=== PATIENT | female | born 1955 | race Caucasian/White ===

== ENCOUNTER 2020-05-23 06:54 | Outpatient (NON) | payer MEDICARE, SELFPAY ==
[2020-05-23 14:30] LABS: Influenza Control Positive
[2020-05-24 20:05] LABS: SARS-CoV-2 RNA PCR Negative
== END 2020-05-23 06:55 ==
PROVIDERS: PCP Family Medicine; Visit Provider Family Medicine
DX: Z20.828 Contact with and (suspected) exposure to other viral communicable diseases (principal); R05 Cough
CPT/HCPCS: 87635; 87804; C9803; U0003

== ENCOUNTER 2021-02-11 01:13 | Day surgery (SDC) | payer MEDICARE, SELFPAY ==
[2021-02-11] MEDS: ACETAMINOPHEN 500 MG TABLET 1000 MG PO (07:52)
[2021-02-11] MEDS: KETOROLAC 15 MG/ML VIAL (*BKC) IV PUSH (08:07)
[2021-02-11] MEDS: LACTATED RINGERS 1,000 ML 30 ML IV CONT (08:07)
[2021-02-11 08:08] VITALS: BP 147/90; PULSE 56; TEMP 36.7; O2SAT 99; BMI 27.6
--- NOTE | 2021-02-11 08:19 | WPDANESEPPF ---
Anes - Initial Pre Proc Eval Procedure: Operation Date: 02/11/21 09:30 Proposed Procedures p Right Carpal Tunnel Release - Howie Ramos MD Date/Time: 02/11/21 08:19 Surgeon: Howie Ramos MD Pre Op Diagnosis: right carpal tunnel syndrome Patient Data Age: 65 Gender: F Height: 1.63 m Weight: 73 kg Last Vital Signs Temp 36.7 C 02/11/21 08:08 Pulse 56 L 02/11/21 08:08 BP 147/90 H 02/11/21 08:08 Pulse Ox 99 02/11/21 08:08 Allergies Allergy/AdvReac Type Severity Reaction Status Date / Time No Known Allergies Allergy Mild Verified 02/11/21 07:40 Home Medications Medication Instructions Recorded Confirmed Type calcium carbonate-vitamin D3 600 1 cap PO DAILY 05/24/19 02/11/21 History mg calcium-200 unit capsule fexofenadine 180 mg tablet 180 mg PO DAILY 05/24/19 02/11/21 History cyclobenzaprine 10 mg tablet 10 mg PO QHS PRN #30 tablet 12/27/20 02/11/21 Rx aspirin [Adult Low Dose Aspirin] 81 mg PO DAILY 02/01/21 02/11/21 History atenolol 25 mg PO QAM 02/01/21 02/11/21 History levothyroxine 50 mcg PO QAM 02/01/21 02/11/21 History lisinopril 10 mg PO QAM 02/01/21 02/11/21 History omeprazole 20 mg PO DAILY PRN 02/01/21 02/11/21 History pravastatin 20 mg PO HS 02/01/21 02/11/21 History Patient hx anesthesia problems: none Family hx anesthesia problems: none PMFSH Past Medical History Medical History Allergies Arthritis of carpometacarpal (CMC) joint of right thumb Chronic GERD Deficient knowledge of caesarean delivery Essential (primary) hypertension Pure hypercholesterolemia Right carpal tunnel syndrome Thyroid disorder Surgical History Surgical History H/O breast biopsy H/O: hysterectomy History of meniscectomy of right knee Hx of arthroscopic knee surgery Family History Family History Father Hypertension Malignant neoplasm of prostate Family history of diabetes mellitus in first degree relative Family history of elevated blood lipids Family history of heart disease in male family member before age 55 Diabetes mellitus Grandparent Family history of malignant neoplasm of breast Family history of chronic obstructive pulmonary disease Malignant neoplasm of prostate Family history of malignant neoplasm of breast in first degree relative Mother Hypertension Family history of elevated blood lipids Family history of anemia Cerebrovascular accident Sibling Hypertension Family history of elevated blood lipids Other Carcinoma of colon Family history of allergic disorder Family history of cardiovascular disease Social History Social History Smoking packs per day: 1 Smoking cigarettes per day: 20.0 Years smoked: 47 Smoking pack-years: 47.00 Smoking status: Current every day smoker Tobacco type: cigarettes Second hand tobacco smoke exposure: Yes Alcohol intake: current Drinks per week: 21 Alcohol use details: wine Substance use: never Substance use type: does not use Living arrangements: with family Additional living arrangements comments: HUSB AND CHILD Gender identity (if verbalized by the patient): Female Spiritual care concerns: No Agree to blood products: Yes Anes - Eval Final PreProcedure Day of Procedure 02/11/21 08:19 Patient weight: overweight Heart: regular rate and rhythm Lungs: decreased breath sounds Airway: Mallampati scale class II Neurological: alert and oriented Last oral intake: >/= 8 hours ASA classification: III Emergent: no Anesthetic plan: proceed Anesthesia type and monitoring: general GIVS and standard monitoring Informed Consent: The patient's anesthetic plan and its attendant risks and benefits were discussed with the patient/family/POA. Questions were khalif
--- NOTE | 2021-02-11 09:13 | WPDHPUPDATE1 ---
History and Physical Update Update Date/Time: 02/11/21 09:13 History and Physical has been reviewed, including an updated exam of the patient. There are NO changes in the patient's condition. Risks, benefits, and alternatives have been discussed and questions answered. Patient agrees to proceed with procedure.
[2021-02-11] MEDS: ceFAZolin 2 GM/D5W 50 ML 2 GM/50 ML BAG IVPB (09:18)
[2021-02-11 09:55] VITALS: BP 109/69; PULSE 59; RESP 12; O2SAT 93
--- NOTE | 2021-02-11 10:02 | W.PM.PROC2 ---
Procedure Note - Detailed Date of Procedure 02/11/21 Pre-op Diagnosis right carpal tunnel syndrome Post-op Diagnosis same Procedure Performed Open right carpal tunnel release Surgeon Howie Ramos MD Correspondence Representative Miladis Magallanes Anesthesia MAC and local Indications See H&P Description of Procedure The patient was identified and proper side identified. After being taken to the operating room and transferred to the OR table, a nonsterile tourniquet was placed high on the right upper extremity, which was prepped and draped in the usual sterile fashion. After IV sedation was administered, the subcutaneous tissue in the area of the incision was infiltrated with several cc of 0.25% Marcaine and epinephrine solution. The extremity was exsanguinated and tourniquet inflated to 200 mmHg remaining up for approximately five minutes. A longitudinal incision was over the ulnar aspect of the transverse carpal ligament. Subcutaneous tissue was bluntly dissected down to the ligament, which was identified and then transected longitudinally in line with the incision releasing the contents of the carpal canal. The tourniquet was released. Hemostasis was carried out with bipolar electrocautery. The median nerve had appropriate blush with reperfusion. The wound was irrigated with sterile saline solution. Skin edges were reapproximated with four 0 nylon suture and a sterile dressing was applied. A well-padded volar wrist splint was fashioned with the wrist in a neutral position. Estimated Blood Loss 1 Tourniquet Time 5 Drains No Packing No Pathology none sent Complications No immediate complications Condition stable Disposition PACU
[2021-02-11 10:25] VITALS: BP 164/94; PULSE 56; RESP 20
[2021-02-11 10:55] VITALS: BP 168/90; PULSE 54; RESP 20
== END 2021-02-11 11:06 | disposition home or self-care (01) ==
PROVIDERS: PCP Family Medicine; Visit Provider Orthopaedic Surgery
PROC: (CPT 64721; principal; 2021-02-11 09:30)
DX: G56.01 Carpal tunnel syndrome, right upper limb (principal); I10 Essential (primary) hypertension; E07.9 Disorder of thyroid, unspecified; M18.11 Unilateral primary osteoarthritis of first carpometacarpal joint, right hand; F17.210 Nicotine dependence, cigarettes, uncomplicated; Z79.82 Long term (current) use of aspirin; E03.9 Hypothyroidism, unspecified; K21.9 Gastro-esophageal reflux disease without esophagitis; E78.00 Pure hypercholesterolemia, unspecified
CPT/HCPCS: 64721; A9270; J0690; J1885; J2250; J2704; J3010; J7120

== ENCOUNTER → 2021-04-18 01:45 | Outpatient (CLI) | payer MEDICARE, SELFPAY ==
[2021-04-18 11:28] LABS: Influenza Control Positive
[2021-04-18 22:24] LABS: SARS-CoV-2 RNA PCR Negative
== END ==
PROVIDERS: PCP Family Medicine; Visit Provider Family Medicine
DX: R05.9 Cough, unspecified (principal); Z20.822 Contact with and (suspected) exposure to COVID-19
CPT/HCPCS: 87804; C9803; U0003; U0005

== ENCOUNTER → 2021-10-22 11:50 | Outpatient (CLI) | payer MEDICARE, SELFPAY ==
--- NOTE | ~2021-10-22 | MR_ITS ---
EXAMINATION: MR cervical spine wo con DATE: 10/22/2021 12:28 INDICATION: Neck pain. TECHNIQUE: Magnetic resonance imaging (MRI) of the cervical spine was performed without intravenous c ontrast. Sequences included sagittal T2-weighted FSE, sagittal T2-weighted FS FSE, sagittal T1-weight ed FSE, axial MERGE, and axial T2-weighted FSE. COMPARISON: Cervical spine radiographs 10/10/2021 FINDINGS: There is 4 degrees dextrocurvature of cervical spine. There is kyphosis of lower cervical s pine. There is 2 mm retrolisthesis of C5 on C6. Vertebral body heights are normal. There is severely decreased disc height at C4-C5 and C5-C6. There is increased T2-weighted signal intensity in the spin al cord centered at the chandra matter from C4 to C6, consistent with myelomalacia. The following disc l evels are specifically discussed: C2-C3: The disc does not extend beyond the endplate margin. There is moderate left uncovertebral join t osteoarthritis. There is mild right and severe left facet joint osteoarthritis. There is mild left neural foraminal stenosis. There is no central canal stenosis. C3-C4: The disc is bulging. There is moderate bilateral uncovertebral joint osteoarthritis. There is moderate right and severe left facet joint osteoarthritis. There is mild right and moderate left neur al foraminal stenosis. There is mild central canal stenosis. C4-C5: The disc is bulging. There is severe bilateral uncovertebral joint osteoarthritis. There is se lucie bilateral facet joint osteoarthritis. There is severe bilateral neural foraminal stenosis. There is mild central canal stenosis with ventral indentation of spinal cord. C5-C6: The disc is bulging. There is severe bilateral uncovertebral joint osteoarthritis. There is mo derate bilateral facet joint osteoarthritis. There is moderate bilateral neural foraminal stenosis. T here is moderate central canal stenosis with ventral and dorsal indentation of the spinal cord. C6-C7: There is a central protrusion. There is mild bilateral uncovertebral joint osteoarthritis. The re is moderate right and severe left facet joint osteoarthritis. There is mild left neural foraminal stenosis. There is mild central canal stenosis. C7-T1: There is a central protrusion. There is mild bilateral uncovertebral joint osteoarthritis. The re is severe bilateral facet joint osteoarthritis. There is mild bilateral neural foraminal stenosis. There is no central canal stenosis. IMPRESSION: 1. Myelomalacia from C4 to C6. 2. Severe cervical spondylosis. Reviewed, dictated and finalized at location E.
== END ==
PROVIDERS: PCP Family Medicine; Visit Provider Orthopaedic Surgery
DX: M54.2 Cervicalgia (principal); M47.812 Spondylosis without myelopathy or radiculopathy, cervical region; G95.89 Other specified diseases of spinal cord
CPT/HCPCS: 72141